=== PATIENT | male | born 1995 | race Caucasian/White ===

== ENCOUNTER 2017-11-04 12:49 | Emergency (ER) | payer MEDICAID ==
[2017-11-04 13:00] VITALS: BP 120/78; PULSE 112; RESP 16; TEMP 98.2; O2SAT 99
--- NOTE | 2017-11-04 13:56 | EDPHY ---
H & P Time Seen by Provider: 11/04/17 13:45 HPI/ROS: CHIEF COMPLAINT: Medical clearance from police HISTORY OF PRESENT ILLNESS: Patient is brought in saying he wanted to hurt himself by having the police shoot him. Says he took a single Xanax today and then had an altercation with police was shot with a santiago bag in the left anterior thigh. Just has a little pain in the left proximal groin, no other medical complaints. Denies overdose or drugs or alcohol today. REVIEW OF SYSTEMS: Eye: no change in vision ENT: no sore throat Cardiac: no chest pain or syncope Pulmonary: no cough or SOB Abdomen: no vomiting, diarrhea, abdominal pain Musculoskeletal: Left thigh pain Skin: no rash Neuro: no headache Constitutional: no fever : no urinary symptoms A comprehensive 10 point review of systems is otherwise negative aside from elements mentioned in the history of present illness. PAST MEDICAL HISTORY: Previous left femur fracture with hip replacement after trauma Social history: Denies alcohol or drugs General Appearance: Alert and conversant, cooperative. Eyes: No scleral icterus. ENT, Mouth: Normal mucous membranes. Respiratory: Normal respiratory effort, breath sounds equal, lungs are clear to auscultation. Cardiovascular: Regular rate and rhythm. Gastrointestinal: Abdomen is soft and non tender. Normal male . No testicular swelling or injury. Neurological: Alert, face symmetric, normal motor and sensory in extremities. Skin: Bruising on the left anterior thigh proximally but no laceration Musculoskeletal: Compartments are soft, no extremity or spinal tenderness. Specifically does not have extremity tenderness in the left femur or hip or pelvis. No pain with palpation of the area of the bruise from the santiago bag, or flexion or rotation of the left femur. Psychiatric: Not agitated. Emergency Department course/MDM: Labs to include CBC chemistry Tylenol and aspirin. Otherwise would be cleared for police with psychiatric evaluation in intermediate. 1439: Labs reviewed, negative Tylenol and aspirin, normal chemistries. Stable for discharge, per PD will get mental health evaluation in custody today, for suicidal ideation. Appears medically stable for discharge to custody. Smoking Status: Current some day smoker Constitutional: Initial Vital Signs Temperature (C) 36.8 C 11/04/17 12:49 Heart Rate 112 H 11/04/17 12:49 Respiratory Rate 16 11/04/17 12:49 Blood Pressure 120/78 11/04/17 12:49 O2 Sat (%) 99 11/04/17 12:49 O2 Delivery Mode Room Air Allergies/Adverse Reactions: penicillin G [Penicillin G] Allergy (Verified 09/09/10 04:02) Home Medications: Medication Instructions Recorded Adderall 10 mg 09/09/10 Medical Decision Making - Data Points Laboratory Results: Laboratory Results 11/04/17 14:05 11/04/17 14:05 11/04/17 11/04/17 14:05 14:05 WBC 9.21 10^3/uL 10^3/uL (3.80-9.50) RBC 4.47 10^6/uL 10^6/uL (4.40-6.38) Hgb 14.1 g/dL g/dL (13.7-17.5) Hct 39.8 % L % (40.0-51.0) MCV 89.0 fL fL (81.5-99.8) MCH 31.5 pg pg (27.9-34.1) MCHC 35.4 g/dL g/dL (32.4-36.7) RDW 12.8 % % (11.5-15.2) Plt Count 248 10^3/uL 10^3/uL (150-400) MPV 9.7 fL fL (8.7-11.7) Neut % (Auto) 79.2 % H % (39.3-74.2) Lymph % (Auto) 13.4 % L % (15.0-45.0) [place] % (Auto) 6.4 % % (4.5-13.0) Eos % (Auto) 0.3 % L % (0.6-7.6) Baso % (Auto) 0.5 % % (0.3-1.7) Nucleat RBC Rel Count 0.0 % % (0.0-0.2) Absolute Neuts (auto) 7.29 10^3/uL H 10^3/uL (1.70-6.50) Absolute Lymphs (auto) 1.23 10^3/uL 10^3/uL (1.00-3.00) Absolute Monos (auto) 0.59 10^3/uL 10^3/uL (0.30-0.80) Absolute Eos (auto) 0.03 10^3/uL 10^3/uL (0.03-0.40) Absolute Basos (auto) 0.05 10^3/uL 10^3/uL (0.02-0.10) Absolute Nucleated RBC 0.00 10^3/uL 10^3/uL (0-0.01) Immature Gran % 0.2 % % (0.0-1.1) Immature Gran # 0.02 10^3/uL 10^3/uL (0.00-0.10) Sodium 141 mEq/L mEq/L (135-145) Potassium 4.4 mEq/L mEq/L (3.5-5.2) Chloride 106 mEq/L mEq/L (97-110) Carbon Dioxide 21 mEq/l L mEq/l (22-31) Anion Gap 14 mEq/L mEq/L (8-16) BUN 14 mg/dL mg/dL (7-23) Creatinine 0.9 mg/dL mg/dL (0.7-1.3) Estimated GFR > 60 Glucose 93 mg/dL mg/dL (70-100) Calcium 9.8 mg/dL mg/dL (8.5-10.4) Salicylates < 1.0 mg/dL L mg/dL (2.0-20.0) Acetaminophen < 10 mcg/mL L mcg/mL (10-30) Departure - Departure Disposition: Home, Routine, Self-Care Clinical Impression: Contusion of left thigh Qualifiers: Encounter type: initial encounter Qualified Code(s): S70.12XA - Contusion of left thigh, initial encounter Condition: Good Instructions: Contusion in Adults (ED) Additional Instructions: Needs to get mental health evaluation today for suicidal ideation, while he is in custody. Pt is medically cleared Referrals: PONCE MANNING [Primary Care Provider] - As per Instructions
[2017-11-04 14:21] LABS: PLATELET COUNT 248 10^3/uL (150-400)
== END 2017-11-04 15:06 | disposition home or self-care (01) ==
LOC: EDUNIT#
DX: S70.12XA Contusion of left thigh, initial encounter (principal); F17.200 Nicotine dependence, unspecified, uncomplicated; W22.8XXA Striking against or struck by other objects, initial encounter
CPT/HCPCS: G0480